=== PATIENT | male | born 1970 | race Caucasian/White ===

== ENCOUNTER → 2020-07-16 | Outpatient (CLI) | payer OTHER ==
[2020-07-16 13:37] LABS: HEMOGLOBIN 13.9 gm/dl (14.0-17.5); WHITE BLOOD COUNT 8.3 K/UL (4.5-11.0)
[2020-07-16 14:36] LABS: BUN/CREATININE RATIO 12 (0-10)
== END ==
LOC: LAB 12:29
PROVIDERS: Nurse Practitioner Family
DX: R00.2 Palpitations (principal); R00.0 Tachycardia, unspecified; R20.2 Paresthesia of skin; R42 Dizziness and giddiness
CPT/HCPCS: 36415; 80053; 80061; 82550; 82553; 83036; 84443; 84484; 85025; 85610; 85652; 85730; 86140; 93005